=== PATIENT | male | born 1995 | race Hispanic/Latino ===

== ENCOUNTER 2017-11-03 01:18 | Emergency (ER) | payer SELFPAY ==
[2017-11-03] MEDS ORDERED: Ondansetron ODT 8 MG TAB ONE (02:04)
[2017-11-03] MEDS ORDERED: Lidocaine 1% w/Epinephrine 1:100K 20 ML VIAL ONE (02:09)
--- NOTE | 2017-11-03 08:25 | CT ---
PRELIMINARY REPORT/[facility]/EMERGENCY AFTER HOURS PROCEDURE: EXAM: CT Head Without Intravenous Contrast EXAM DATE/TIME: 11/03/2017 1:48 AM CLINICAL HISTORY: 22 years old, male; Injury or trauma; Fall; Initial encounter; Abrasion; Face; Patient HX: Patient pr esents for evaluation of alcohol abuse, patient presents for evaluation of fall. TECHNIQUE: Axial computed tomography images of the head/brain without intravenous contrast. COMPARISON: No relevant prior studies available. FINDINGS: Brain: Normal. No hemorrhage. No significant white matter disease. No edema. Ventricles: Normal. No ventriculomegaly. Bones/joints: Normal. No acute fracture. Sinuses: Normal as visualized. No acute sinusitis. Mastoid air cells: Normal as visualized. No mastoid effusion. Soft tissues: Normal. IMPRESSION: No acute intracranial pathology. Thank you for allowing us to participate in the care of your patient. Dictated and Authenticated by: Nadiya Simpson MD 11/03/2017 3:03 AM Central Time ([place] & [place]) FINAL REPORT EMERGENCY AFTER HOURS CT BRAIN: Date: 11/03/17 IMPRESSION: I agree with the preliminary interpretation given by Raman. No evidence for intracranial hemorrhage or mass effect. POS: [facility]
--- NOTE | 2017-11-03 08:27 | CT ---
PRELIMINARY REPORT/[facility]/EMERGENCY AFTER HOURS PROCEDURE: EXAM: CT Maxillofacial Without Intravenous Contrast EXAM DATE/TIME: 11/03/2017 1:51 AM CLINICAL HISTORY: 22 years old, male; Injury or trauma; Fall; Initial encounter; Blunt trauma (contusions or hematomas) ; Jaw; Left; Patient HX: , M21 presents to ed C/O intoxication and fall. PT was attempting to run fro m police when he fell TECHNIQUE: Axial computed tomography images of the face without intravenous contrast. COMPARISON: No relevant prior studies available. FINDINGS: Bones/joints: No acute fracture. Soft tissues: No significant facial soft tissue swelling. Orbits: No acute intraorbital abnormality. Globes are unremarkable Sinuses: No air-fluid levels. IMPRESSION: No acute fracture or dislocation. Thank you for allowing us to participate in the care of your patient. Dictated and Authenticated by: Nadiya Simpson MD 11/03/2017 3:08 AM Central Time ([place] & [place]) FINAL REPORT EMERGENCY AFTER HOURS CT FACIAL BONES: Date: 11/03/17 IMPRESSION: I agree with the preliminary interpretation given by Raman. No evidence for fracture. POS: [facility]
--- NOTE | 2017-11-03 08:29 | CT ---
PRELIMINARY REPORT/[facility]/EMERGENCY AFTER HOURS PROCEDURE: EXAM: CT Cervical Spine Without Intravenous Contrast EXAM DATE/TIME: 11/03/2017 1:54 AM CLINICAL HISTORY: 22 years old, male; Injury or trauma; Fall; Initial encounter; Abrasion; Patient HX: , M21 presents t o ed C/O intoxication and fall. PT was attempting to run from police when he fell TECHNIQUE: Axial computed tomography images of the cervical spine without intravenous contrast. COMPARISON: No relevant prior studies available. FINDINGS: Vertebrae: No acute fracture. Normal alignment. Discs/Spinal canal/Neural foramina: No spinal stenosis. No neural foraminal narrowing. Soft tissues: Unremarkable. Lung apices: Normal. IMPRESSION: No acute fracture or dislocation. Thank you for allowing us to participate in the care of your patient. Dictated and Authenticated by: Nadiya Simpson MD 11/03/2017 3:05 AM Central Time ([place] & [place]) FINAL REPORT EMERGENCY AFTER HOURS CT CERVICAL SPINE: Date: 11/03/17 IMPRESSION: I agree with the preliminary interpretation given by Raman. No evidence for fracture or traumatic subl uxation. POS: [facility]
== END 2017-11-03 03:15 | disposition home or self-care (01) ==
LOC: ERS 01:18
DX: S09.90XA Unspecified injury of head, initial encounter (principal); S01.81XA Laceration without foreign body of other part of head, initial encounter; F10.129 Alcohol abuse with intoxication, unspecified; W18.30XA Fall on same level, unspecified, initial encounter
CPT/HCPCS: 12011; 70450; 70486; 72125; J2001